=== PATIENT | male | born 1960 | race Caucasian/White ===

== ENCOUNTER → 2018-02-22 | Outpatient (CLI) | payer OTHER | END | disposition home or self-care (01) | LOC: CVU 08:48 | PROVIDERS: ATTEND Nurse Practitioner Family | DX: M79.662 Pain in left lower leg (principal); M79.604 Pain in right leg; R20.0 Anesthesia of skin; R20.2 Paresthesia of skin; I10 Essential (primary) hypertension; E78.5 Hyperlipidemia, unspecified; Z87.891 Personal history of nicotine dependence | CPT/HCPCS: 93922; 93925 ==

== ENCOUNTER 2020-11-23 08:29 | Emergency (ER) | payer OTHER ==
[~2020-11-23] VITALS: Ht 188 cm; Wt 111.3 kg
--- NOTE | 2020-11-23 09:40 | NUR ---
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
--- NOTE | 2020-11-23 09:53 | NUR ---
pt wants covid medications. covid +. pt with steady gait to room. postioned to comfort. attached to monitors. vss. nadn. dr. knox to bedside for evaluation.
[2020-11-23] MEDS ORDERED: CASIRIVIMAB 600 MG, IMDEVIMAB (REGN10987) 600 MG in SODIUM CHLORIDE 0.9% 250 ML IVPB ONE (10:00)
[2020-11-23] MEDS ORDERED: SODIUM CHLORIDE FLUSH 10ML SYR IVF ONE (10:00)
[2020-11-23] MEDS ORDERED: FILTER 0.22 MICRON IV ONE (10:00)
--- NOTE | 2020-11-23 10:56 | NUR ---
pt medicated per emar. vss.thiagon.
[2020-11-23 12:53] VITALS: BP 122/78
--- NOTE | 2020-11-23 12:56 | NUR ---
Patient given discharge instructions and they have confirmed that they understand the instructions. Patient ambulatory with steady gait. NAD, all questions answered appropriately, denies additional needs at this time. No personal belongings left in room after discharge.
== END 2020-11-23 12:57 | disposition home or self-care (01) ==
LOC: ED 12:15
DX: U07.1 COVID-19 (principal); J06.9 Acute upper respiratory infection, unspecified
CPT/HCPCS: 99281; J7050; M0243; 96372; 99283

== ENCOUNTER 2020-12-21 11:12 | Emergency (ER) | payer OTHER ==
[~2020-12-21] VITALS: Ht 185.4 cm; Wt 109.0 kg
[2020-12-21] MEDS ORDERED: SODIUM CHLORIDE FLUSH 10ML SYR IVF ONE (15:00)
[2020-12-21] MEDS ORDERED: PROPOFOL 10 MG/ML, 20ML IVPush ONE (15:00)
[2020-12-21] MEDS ORDERED: PROPOFOL 10 MG/ML, 20ML ONE (15:25)
[2020-12-21 17:11] VITALS: BP 152/90
== END 2020-12-21 17:26 | disposition home or self-care (01) ==
LOC: ED 17:20
DX: T18.128A Food in esophagus causing other injury, initial encounter (principal); X58.XXXA Exposure to other specified factors, initial encounter; Y93.89 Activity, other specified; Y92.89 Other specified places as the place of occurrence of the external cause; Y99.8 Other external cause status
CPT/HCPCS: 74220; 99285